=== PATIENT | female | born 1960 | race Caucasian/White ===

== ENCOUNTER → 2019-03-04 16:53 | Outpatient (BNVA) | payer OTHER, SELFPAY | PROVIDERS: Family Provider Nurse Practitioner Family; PCP Nurse Practitioner Family; Visit Provider Counselor Professional | DX: Z00.00 Encounter for general adult medical examination without abnormal findings (principal) | CPT/HCPCS: 80061; 83036 ==

== ENCOUNTER → 2019-03-18 10:51 | Outpatient (BNVA) | payer MEDICAID, SELFPAY | PROVIDERS: Family Provider Nurse Practitioner Family; PCP Nurse Practitioner Family; Visit Provider Family Medicine | DX: K21.9 Gastro-esophageal reflux disease without esophagitis (principal); E78.5 Hyperlipidemia, unspecified; I10 Essential (primary) hypertension; Z83.3 Family history of diabetes mellitus; Z13.1 Encounter for screening for diabetes mellitus; L84 Corns and callosities; B35.1 Tinea unguium | CPT/HCPCS: 80053; 80061; 83036 ==

== ENCOUNTER → 2019-07-27 09:26 | Outpatient (BNVA) | payer MEDICAID, SELFPAY ==
[2019-03-06 15:00] VITALS: BP 139/76; BMI 45.4
== END ==
PROVIDERS: Family Provider Nurse Practitioner Family; PCP Nurse Practitioner Family; Visit Provider Podiatrist Foot & Ankle Surgery
DX: M79.673 Pain in unspecified foot (principal); Z98.890 Other specified postprocedural states
CPT/HCPCS: 73630

== ENCOUNTER → 2019-08-11 10:24 | Outpatient (BNVA) | payer MEDICAID, SELFPAY ==
[2019-03-06 15:00] VITALS: BP 139/76; BMI 45.4
== END ==
PROVIDERS: Family Provider Nurse Practitioner Family; PCP Nurse Practitioner Family; Visit Provider Family Medicine
DX: I11.0 Hypertensive heart disease with heart failure (principal); I50.32 Chronic diastolic (congestive) heart failure; K21.9 Gastro-esophageal reflux disease without esophagitis; F33.1 Major depressive disorder, recurrent, moderate; I48.20 Chronic atrial fibrillation, unspecified; S91.209A Unspecified open wound of unspecified toe(s) with damage to nail, initial encounter; L89.321 Pressure ulcer of left buttock, stage 1; X58.XXXA Exposure to other specified factors, initial encounter
CPT/HCPCS: 80048

== ENCOUNTER 2019-12-18 08:52 | Outpatient (CLI) | payer MEDICAID, SELFPAY ==
[2019-03-06 15:00] VITALS: BP 139/76; BMI 45.4
[2019-12-05 11:35] VITALS: BP 139/76; BMI 45.4
--- NOTE | 2019-12-18 08:59 | MM_ITS ---
WS: [id number] Exam: [place] [id number] Date/Time of Exam: 12/18/2019 9:24 AM Reason For Exam: SCREENING VIEWS: MLO and CC views both breasts. Comparison made with prior exam of 05/17/2016. Findings: There was no sign of mass, architectural distortion or suspicious calcification in either breast. The breasts are fatty MM/[place] [id number] Impression: BI-RADS: 2-Benign FOLLOW-UP: 1 Year Follow-up This mammogram was also analyzed by the Computer Aided Detection System R2 Imag e Auxiliary Engineer.
== END 2019-12-18 08:53 | disposition home or self-care (01) ==
LOC: RADSHAW 08:56
PROVIDERS: PCP Family Medicine; Visit Provider Obstetrics & Gynecology
DX: Z12.31 Encounter for screening mammogram for malignant neoplasm of breast (principal)
CPT/HCPCS: 77067

== ENCOUNTER → 2020-02-22 17:38 | Outpatient (BNVA) | payer MEDICAID, SELFPAY ==
[2019-12-05 11:35] VITALS: BP 139/76; BMI 45.4
== END ==
PROVIDERS: PCP Family Medicine; Visit Provider Family Medicine
DX: K21.9 Gastro-esophageal reflux disease without esophagitis (principal); I10 Essential (primary) hypertension; I48.20 Chronic atrial fibrillation, unspecified; E78.5 Hyperlipidemia, unspecified; R25.2 Cramp and spasm; F32.1 Major depressive disorder, single episode, moderate
CPT/HCPCS: 80053; 80061; 83735; 85025

== ENCOUNTER 2020-03-26 10:38 | Emergency (ER) | payer MEDICAID, SELFPAY ==
[2019-12-05 11:35] VITALS: BP 139/76; BMI 45.4
[2020-03-26 10:39] VITALS: BP 146/82; PULSE 72; RESP 14; TEMP 36.7; O2SAT 97; BMI 63.7
--- NOTE | 2020-03-26 10:50 | XRR_ITS ---
PROCEDURE INFORMATION: Exam: XR Chest, 1 View Exam date and time: 03/26/2020 11:21 AM Age: 59 years old Clinical indication: Chest pain; Type not specified TECHNIQUE: Imaging protocol: XR of the chest Views: 1 view. COMPARISON: CR Chest 1 [place] [id number] 10/30/2018 3:38 PM FINDINGS: Lungs: Unremarkable. No consolidation. Pleural spaces: Unremarkable. No pleural effusion. No pneumothorax. Heart/Mediastinum: Unremarkable. No cardiomegaly. Bones/joints: Unremarkable. XR/XR chest 1V portable [id number] IMPRESSION: No acute findings.
--- NOTE | 2020-03-26 10:51 | ECG_ITS ---
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: : 1960 Requested By: Pawel Beckett Order Number: [id number] Reading MD: BRYANNA RUIZ Measurements Intervals [place] Rate: 70 P: 95 [place]: 198 QRS: 24 QRSD: 90 T: 10 QT: 415 QTc: 448 Interpretive Statements SINUS RHYTHM ST DEVIATION AND MODERATE T-WAVE ABNORMALITY, CONSIDER ANTERIOR ISCHEMIA [-0.1+ mV T WAVE IN V3/V4] Compared to ECG 11/01/2018 08:06:43 Sinus bradycardia no longer present First degree AV block no longer present T-wave abnormality still present Possible ischemia still present Electronically Signed On 03-26-2020 21:34:23 ASSURANCE SENIOR by BRYANNA RUIZ [id number]
[2020-03-26 11:04] VITALS: BP 124/74; PULSE 64; RESP 15; O2SAT 96; O2SAT 97
[2020-03-26 11:05] LABS: Basophils # 0.1 10^3/uL (0.0-0.1); Basophils % 1.4 %; Eosinophils # 0.1 10^3/uL (0.0-0.8); Eosinophils % 1.1 %; Hematocrit 40.4 % (37.0-47.0); Hemoglobin 13.1 g/dL (11.5-15.3); Lymphocytes # 1.7 10^3/uL (0.8-4.8); Lymphocytes % 25.6 %; Mean Corpuscular HGB Conc 32.4 g/dL (30.0-36.0); Mean Corpuscular Volume 89.4 fL (81-99); Mean Platelet Volume 12.2 fL (7.4-10.4); Monocytes # 0.4 10^3/uL (0.2-0.9); Monocytes % 6.6 %; Neutrophils # 4.32 10^3/uL (1.8-7.7); Nucleated Red Blood Cells % 0 %; Platelet Count 199 10^3/cmm (130-400); Red Blood Count 4.52 10^6/uL (4.1-5.3); Red Cell Distribution Width 13.6 % (12.1-15.1); White Blood Count 6.6 10^3/uL (4.0-10.0)
--- NOTE | 2020-03-26 11:07 | W.ED.CHESTPA ---
HPI - Chest Pain General: Chief Complaint: Chest Pain Stated Complaint: CHEST PAIN / SHORT OF BREATH / HEADACHE Time Seen by Provider: 03/26/20 10:43 History of Present Illness: HPI narrative: 59-year-old female with a history of atrial fibrillation with a previous ablation. She woke up this morning with chest pain shortness of breath dizziness and headache. Initially when she woke up her chest felt funny she checked her heart rate on a home pulse ox that it was in the 140s to 180s. It resolved with time EMS arrived to go a little better when she sat up. She did get short of breath with it but not no nausea vomiting or diaphoresis. No previous history of heart disease but does have a history of A. fib with ablation. About 4 to 5 weeks ago she stopped taking metoprolol which she previously had been on for rate control. She still is on Eliquis. MD complaint: chest pain and chest discomfort Pertinent past history: other (Atrial fibrillation with previous ablation) Onset (ago): hour(s) Timing of current episode: episodic Prior episodes: Yes Onset: during rest Pain location: left chest Severity: moderate Quality: aching and heaviness Relieving factors: sitting upright Exacerbating factors: nothing Associated symptoms: Reports dyspnea, palpitations and sense of impending doom; Deny abdominal pain, diaphoresis, fever(s), leg edema, nausea, syncope or vomiting Treatment prior to arrival: none Review of Systems Const: Denies: fever(s) or diaphoresis ENMT: Denies: throat pain, ear or mastoid pain, nasal discharge or nasal congestion Card: Reports: palpitations; Denies: syncope Resp: Reports: dyspnea GI: Denies: abdominal pain, nausea or vomiting : Denies: flank pain, difficulty voiding, dysuria, urinary frequency or urinary urgency Skin/Breast: Denies: rash or pruritus PFSH ED PFSH: Medical History Chronic constipation Chronic diastolic HF (heart failure) Dyslipidemia GERD (gastroesophageal reflux disease) Hepatitis-C HTN (hypertension) Major depressive disorder, recurrent, moderate Obesity, morbid Osteoarthritis Rheumatoid arthritis Sleep apnea Surgical History H/O removal of cyst H/O tubal ligation History of appendectomy Family History Brother Atrial fibrillation Father Atrial fibrillation Cancer prostate Mother Cancer breast cancer Other Hypercholesterolemia Stroke Social History Smoking and tobacco status: former smoker Second hand smoke exposure: No Alcohol intake: never Adopted: No Caregiver/support person: No Lives independently: Yes Household members: spouse Housing: Apartment Marital status: Marital status details: 37 years Number of children: 2 Number of grandchildren: 3 Highest education level completed: GED or Equivalent service: No Current occupational status: disabled Current occupational exposures/hazards: No Pets and animals: Yes Pets & animals: dog(s) History of recent travel: No Leisure activites: games, reading and other Leisure activities details: knit or jeannie Sexually active: Yes Current gender identity: Female Dede/Oriental Orthodox: None Special dede needs: No Agree to transfusion: Yes Financial difficulty paying for basics: Somewhat Hard Female Reproductive History: Para: 2 Spontaneous abortions: No Physical Exam Const: COMMON NORMALS: no acute distress GENERAL APPEARANCE: cooperative and comfortable ORIENTATION/CONSCIOUSNESS: Yes awake, Yes oriented to person, Yes oriented to place and Yes oriented to time HENMT: COMMON NORMALS: normocephalic, atraumatic and hearing grossly normal bilaterally HEAD & SCALP: normocephalic and atraumatic Neck/C-Spine: COMMON NORMALS: no JVD Resp: COMMON NORMALS: normal respiratory effort, No retractions, No use of accessory muscles and clear to auscultation bilaterally AUSCULTATION: clear to auscultation bilaterally Cardio: COMMON NORMALS: no JVD, regular rate, regular rhythm and No murmurs present (Cardio) RATE: regular rate RHYTHM: regular rhythm GI: COMMON NORMALS: Soft to palpation and No hepatosplenomegaly present AUSCULTATION: Yes normoactive bowel sounds PALPATION: Yes Soft to palpation, No Tenderness to palpation present (GI), No Guarding due to palpation present (GI) and Yes No hepatosplenomegaly present Extremity: COMMON NORMALS: normal to inspection, capillary refill normal, no clubbing, cyanosis or edema, no calf tenderness and no pedal edema Neuro: SENSORIUM/ORIENTATION: Yes oriented to person, Yes oriented to place and Yes oriented to time Skin: COMMON NORMALS: no rashes or lesions noted GENERAL SKIN EXAM: no rashes or lesions noted Course Vital Signs: Vital signs: Vital Signs Temperature 98.1 F 03/26/20 10:39 Pulse Rate 61 03/26/20 14:40 Respiratory Rate 20 H 03/26/20 14:40 Blood Pressure 129/60 03/26/20 14:40 Pulse Oximetry 96 03/26/20 14:40 MDM - Chest Pain MDM Narrative: Medical decision making narrative: [place] negative. Patient symptom-free at this time. Few months ago she had an ablation. She is a history of atrial fibrillation. No abnormalities in the EKG now. We will go and discharge home get a Holter monitor continue current medication return if has problems. Lab Data: Labs: Lab Results 03/26/20 03/26/20 03/26/20 Range/Units 10:55 10:55 10:55 WBC 6.6 (4.0-10.0) 10^3/ uL RBC 4.52 (4.1-5.3) 10^6/u L Hgb 13.1 (11.5-15.3) g/dL Hct 40.4 (37.0-47.0) % MCV 89.4 (81-99) fL MCH 29.0 (28.0-34.0) pg MCHC 32.4 (30.0-36.0) g/dL RDW 13.6 (12.1-15.1) % Plt Count 199 (130-400) 10^3/c mm MPV 12.2 H (7.4-10.4) fL Neut % (Auto) 65.0 % Lymph % (Auto) 25.6 % [place] % (Auto) 6.6 % Eos % (Auto) 1.1 % Baso % (Auto) 1.4 % Neut # (Auto) 4.32 (1.8-7.7) 10^3/u L Lymph # (Auto) 1.7 (0.8-4.8) 10^3/u L [place] # (Auto) 0.4 (0.2-0.9) 10^3/u L Eos # (Auto) 0.1 (0.0-0.8) 10^3/u L Baso # (Auto) 0.1 (0.0-0.1) 10^3/u L Nucleated RBC % (a uto) 0 % Nucleated RBCs # 0.0 /100WBC Sodium 142 (136-145) mmol/L Potassium 4.1 (3.5-5.1) mmol/L Chloride 108 H (98-107) mmol/L Carbon Dioxide 22 (22-29) mmol/L Anion Gap 16.1 (5-19) BUN 18 (8-23) mg/dL Creatinine 0.7 (0.5-0.9) mg/dL GFR Calculation 85.1 L (90-130) mL/min Glucose 98 (65-115) mg/dL Calculated Osmolal ity 296 H (285-295) mOsm/k g Calcium 9.4 (8.5-10.5) mg/dL Total Bilirubin 0.5 (0.15-1.2) mg/dL AST 19 (0-32) U/L ALT 17 (0-33) U/L Alkaline Phosphata se 89 (35-105) IU/L Troponin T Baselin e 13 H (0-10) ng/L Troponin T 120 Min [place] (0-10) ng/L Delta Troponin T (0-10) ABS# Total Protein 6.9 (6.6-8.7) g/dL Albumin 4.1 (3.5-5.2) g/dL Globulin 2.8 (1.3-4.6) g/dL 03/26/20 Range/Units 13:00 WBC (4.0-10.0) 10^3/ uL RBC (4.1-5.3) 10^6/u L Hgb (11.5-15.3) g/dL Hct (37.0-47.0) % MCV (81-99) fL MCH (28.0-34.0) pg MCHC (30.0-36.0) g/dL RDW (12.1-15.1) % Plt Count (130-400) 10^3/c mm MPV (7.4-10.4) fL Neut % (Auto) % Lymph % (Auto) % [place] % (Auto) % Eos % (Auto) % Baso % (Auto) % Neut # (Auto) (1.8-7.7) 10^3/u L Lymph # (Auto) (0.8-4.8) 10^3/u L [place] # (Auto) (0.2-0.9) 10^3/u L Eos # (Auto) (0.0-0.8) 10^3/u L Baso # (Auto) (0.0-0.1) 10^3/u L Nucleated RBC % (a uto) % Nucleated RBCs # /100WBC Sodium (136-145) mmol/L Potassium (3.5-5.1) mmol/L Chloride (98-107) mmol/L Carbon Dioxide (22-29) mmol/L Anion Gap (5-19) BUN (8-23) mg/dL Creatinine (0.5-0.9) mg/dL GFR Calculation (90-130) mL/min Glucose (65-115) mg/dL Calculated Osmolal ity (285-295) mOsm/k g Calcium (8.5-10.5) mg/dL Total Bilirubin (0.15-1.2) mg/dL AST (0-32) U/L ALT (0-33) U/L Alkaline Phosphata se (35-105) IU/L Troponin T Baselin e (0-10) ng/L Troponin T 120 Min [place] 15.70 H (0-10) ng/L Delta Troponin T 2.70 (0-10) ABS# Total Protein (6.6-8.7) g/dL Albumin (3.5-5.2) g/dL Globulin (1.3-4.6) g/dL Discharge Plan Discharge Patient Disposition: Home Clinical Impression: Palpitations Condition: Stable Prescriptions: No Action docusate sodium 100 mg capsule 100 mg PO BID@0800,2129 RF: 0 meclizine 25 mg tablet 25 mg PO DAILY PRN (Reason: unknown) RF: 0 nitroglycerin 0.4 mg tablet, sublingual 0.4 mg SUBLINGUAL Q5M PRN (Reason: chest pains) RF: 0 Probiotic Acidophilus 1.5 mg (250 million cell) capsule 100 mmu cells PO DAILY@0800 RF: 0 calcium citrate-vitamin D3 315-200 mg-unit tablet 1 tab PO TID@0800,1200,0 RF: 0 furosemide 20 mg tablet 20 mg PO DAILY@0800 RF: 0 potassium chloride 20 mEq tablet,ER particles/crystals 20 meq PO DAILY@0800 RF: 0 atorvastatin 40 mg tablet 40 mg PO DAILY@2130 RF: 0 famotidine 40 mg tablet 40 mg PO DAILY@0800 RF: 0 Zoloft 100 mg tablet 150 mg PO DAILY@0800 RF: 0 Allergy Relief (loratadine) 10 mg tablet 10 mg PO DAILY@0800 RF: 0 Eliquis 5 mg tablet 5 mg PO BID@0800,2130 RF: 0 Discharge Orders: Discharge ED (Routine); Ordered 03/26/20 Ordered By: Pawel Frey Referrals: Xenia Mai MD [Primary Care Provider] - Discharge Diet: Usual diet Discharge Activity: Limit activity as instructed Activity Restrictions/Additional Instructions: Avoid any stressful or exertional activities. Follow-up with cardiology. Case management will call to set you up for a Holter monitor. Coding Level of Care Code ED Cold Roll Packer Sheet Iron for Julio Fwd Exam Comprehensive
[2020-03-26 11:30] LABS: Alanine Aminotransferase 17 U/L (0-33); Albumin Level 4.1 g/dL (3.5-5.2); Alkaline Phosphatase 89 IU/L (35-105); Anion Gap 16.1 (5-19); Aspartate Amino Transferase 19 U/L (0-32); Blood Urea Nitrogen 18 mg/dL (8-23); Calcium 9.4 mg/dL (8.5-10.5); Carbon Dioxide 22 mmol/L (22-29); Chloride 108 mmol/L (98-107); Globulin 2.8 g/dL (1.3-4.6); Glomerular Filtration Rate 85.1 mL/min (90-130); Glucose 98 mg/dL (65-115); Osmolality Calculated 296 mOsm/kg (285-295); Potassium 4.1 mmol/L (3.5-5.1); Sodium 142 mmol/L (136-145); Total Bilirubin 0.5 mg/dL (0.15-1.2); Total Protein 6.9 g/dL (6.6-8.7)
[2020-03-26 11:32] LABS: Troponin(5th) Baseline 13 ng/L (0-10)
[2020-03-26 12:04] VITALS: BP 124/67; PULSE 63; RESP 18; O2SAT 97
--- NOTE | 2020-03-26 12:51 | ECG_ITS ---
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1960 Requested By: Pawel Beckett Order Number: [id number] Reading MD: BRYANNA RUIZ Measurements Intervals [place] Rate: 64 P: 80 MS: 169 QRS: 8 QRSD: 97 T: -2 QT: 430 QTc: 446 Interpretive Statements SINUS RHYTHM WITH OCCASIONAL VENTRICULAR PREMATURE COMPLEXES LOW QRS VOLTAGE IN PRECORDIAL LEADS [QRS DEFLECTION < 1.0 mV IN CHEST LEADS] ST DEVIATION AND MODERATE T-WAVE ABNORMALITY, CONSIDER ANTERIOR ISCHEMIA [-0.1+ mV T WAVE IN V3/V4] INTERPRETATION BASED ON A DEFAULT AGE OF 40 YEARS Compared to ECG 03/26/2020 10:50:12 Ventricular premature complex(es) now present Low QRS voltage now present T-wave abnormality still present Possible ischemia still present Electronically Signed On 03-26-2020 21:34:38 TYPESETTERS PRINTER by BRYANNA RUIZ [id number]
[2020-03-26 13:00] VITALS: BP 124/74; PULSE 60; RESP 18; O2SAT 97
[2020-03-26 14:00] VITALS: BP 129/60; PULSE 61; RESP 20; O2SAT 96
[2020-03-26 14:40] VITALS: BP 129/60; PULSE 61; RESP 20; O2SAT 96
--- NOTE | 2020-03-26 16:51 | ECG_ITS ---
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: : 1960 Requested By: Pawel Beckett Order Number: [id number] Reading MD: BRYANNA RUIZ Measurements Intervals [place] Rate: 70 P: 95 [place]: 198 QRS: 24 QRSD: 90 T: 10 QT: 415 QTc: 448 Interpretive Statements SINUS RHYTHM ST DEVIATION AND MODERATE T-WAVE ABNORMALITY, CONSIDER ANTERIOR ISCHEMIA [-0.1+ mV T WAVE IN V3/V4] Compared to ECG 11/01/2018 08:06:43 Sinus bradycardia no longer present First degree AV block no longer present T-wave abnormality still present Possible ischemia still present Electronically Signed On 03-26-2020 21:34:47 MARINE FIREMAN by BRYANNA RUIZ [id number]
--- NOTE | 2020-03-29 07:47 | DCPLANNER ---
Addendum entered by Nataliia Silverman 04/12/20 14:34: insurance office manager called [facility] to confirm that a follow up appointment had been scheduled for patient for a holter monitor. insurance office manager spoke with Lynette, was told that clinic had received the order for the halter monitor and that there is a note in the chart stating that the order is placed on hold until patient sees Dr. Hernandez on April 28 at the [facility]. At that appointment it will be determined if patient needs halter monitor. Original Note: insurance office manager had message to schedule an out patient 24 hour halter monitor for patient. insurance office manager faxed order and patients information to [facility], will call for appointment information.
== END 2020-03-26 14:51 | disposition home or self-care (01) ==
PROVIDERS: Emergency Provider Family Medicine; PCP Family Medicine
DX: R00.2 Palpitations (principal); Z79.01 Long term (current) use of anticoagulants; I11.0 Hypertensive heart disease with heart failure; I50.32 Chronic diastolic (congestive) heart failure; E78.5 Hyperlipidemia, unspecified; Z86.19 Personal history of other infectious and parasitic diseases; Z87.891 Personal history of nicotine dependence
CPT/HCPCS: 12345; 36415; 71045; 80053; 84484; 85025; 93005; 99283

== ENCOUNTER → 2020-04-13 11:43 | Outpatient (BNVA) | payer OTHER, SELFPAY ==
[2019-12-05 11:35] VITALS: BP 139/76; BMI 45.4
== END ==
PROVIDERS: PCP Family Medicine; Visit Provider Psychiatry & Neurology Neurology
DX: F41.1 Generalized anxiety disorder (principal)
CPT/HCPCS: 80061; 83036

== ENCOUNTER 2020-08-01 13:46 | Emergency (ER) | payer MEDICAID, SELFPAY ==
[2020-04-14 11:03] VITALS: BP 133/72; BMI 46.9
[2020-08-01] VITALS (8 sets, daily range): BP systolic 91–145; BP diastolic 62–78; PULSE 63–77; RESP 14–19; O2SAT 94–100; BMI 48.1
--- NOTE | 2020-08-01 13:51 | XR_ITS ---
WS: [id number] Exam: XR chest 1V portable [id number] Date/Time of Exam: 08/01/2020 1:51 PM Reason For Exam: CP Comparison 03/26/2020. The lungs are clear and fully expanded. Mild cardiac enlargement. No pleural effusions. The mediastin um and osseous thorax are unremarkable. XR/XR chest 1V portable [id number] IMPRESSION: 1. No acute cardiopulmonary finding. Mild cardiac enlargement.
--- NOTE | 2020-08-01 13:51 | ECG_ITS ---
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 Measurements Intervals [place] Rate: 71 P: 67 [place]: 160 QRS: -4 QRSD: 94 T: -36 QT: 413 QTc: 451 Interpretive Statements SINUS RHYTHM LOW QRS VOLTAGE IN PRECORDIAL LEADS [QRS DEFLECTION < 1.0 mV IN CHEST LEADS] POSSIBLE ANTERIOR MYOCARDIAL INFARCTION [30 ms Q WAVE IN V3/V4, OR R < 0.2 mV IN V4], OF INDETERMINATE AGE MODERATE T-WAVE ABNORMALITY, CONSIDER LATERAL ISCHEMIA [-0.1+ mV T WAVE IN I/aVL/V5/V6] Compared to ECG 03/26/2020 12:55:10 Myocardial infarct finding now present Ventricular premature complex(es) no longer present T-wave abnormality still present Possible ischemia still present Electronically Signed On 08-01-2020 22:48:12 CDT by Erum Hernandez M.D. [id number]
--- NOTE | 2020-08-01 14:25 | W.ED.CHESTPA ---
HPI - Chest Pain General: Chief Complaint: Chest Pain Stated Complaint: CHEST PAIN Time Seen by Provider: 08/01/20 14:05 History of Present Illness: HPI narrative: Is a 60-year-old female with paroxysmal atrial fibrillation with ablation previously. She comes to the ER complaining of palpitations at home. She has been told by Dr. Hernandez to take a flecainide and metoprolol. She did so and then took a second flecainide. She went to the bathroom and after standing up she went out and sat back down. She says she did not lose consciousness, she just felt weak. She was helped to a chair and EMS was called. EMS noted her heart rate to be anywhere from the 120s up to 220. They mostly noted A. fib however there was an episode where she was up to 220. I saw their strip that they printed a 12-lead with rate in the 150s which appears to be A. fib RVR. He took his eyes off the telemetry screen and attempted an IV when he looked at the screen again she was in sinus rhythm with a normal rate. Also her symptoms improved greatly. On arrival she is in sinus rhythm with a rate of 70. She says the fullness in her neck that she gets with the palpitation episodes has improved moderately but is still mildly there. She had chest pain and palpitations at home but now has none. h/o diastolic CHF as well. She has had 2 episodes before this. The first time she came to the ER and the second time she was able to take the metoprolol and flecainide with resolution of her symptoms. This is the third time in her family called EMS. complaint: chest pain Onset (ago): hour(s) (1) Timing of current episode: episodic Prior episodes: Yes Pain radiation: neck Severity: moderate Quality: other (palpitations) Relieving factors: nothing Exacerbating factors: nothing Associated symptoms: Reports palpitations; Deny abdominal pain or dyspnea Review of Systems General: Reports: 10 or more systems reviewed and unremarkable except in HPI and below Const: Denies: fatigue Eyes: Denies: change in vision, blurry vision or eye redness ENMT: Denies: throat pain, swelling of lips/tongue, ear or mastoid pain or nasal congestion Card: Reports: palpitations Resp: Denies: dyspnea, productive cough or non-productive cough GI: Denies: abdominal pain, diarrhea or GI cramping : Denies: flank pain, difficulty voiding, urinary frequency or urinary urgency Musc: Denies: neck pain, back pain, extremity pain, joint pain, joint redness, limited range of motion or muscle weakness Skin/Breast: Denies: rash, pruritus, erythema, skin pain or skin tenderness Neuro: Denies: headache(s), numbness in extremities, weakness in extremities, sensory changes, difficulty walking, dizziness, confusion or Slurred speech present Psych: Denies: anxiety or depression Endo: Denies: polyuria All/Imm: Denies: urticaria, throat swelling or tongue swelling PFSH ED PFSH: Medical History Chronic constipation Chronic diastolic HF (heart failure) Dyslipidemia GERD (gastroesophageal reflux disease) Hepatitis-C HTN (hypertension) Major depressive disorder, recurrent, moderate Mixed incontinence urge and stress Obesity, morbid Osteoarthritis Rheumatoid arthritis Sleep apnea Surgical History H/O removal of cyst H/O tubal ligation History of appendectomy Family History Brother Atrial fibrillation Father Atrial fibrillation Cancer prostate Mother Cancer breast cancer Other Hypercholesterolemia Stroke Social History Smoking and tobacco status: former smoker Second hand smoke exposure: No Alcohol intake: never Adopted: No Caregiver/support person: No Lives independently: Yes Household members: spouse Housing: Apartment Marital status: Marital status details: 37 years Number of children: 2 Number of grandchildren: 3 Highest education level completed: GED or Equivalent service: No Current occupational status: disabled Current occupational exposures/hazards: No Pets and animals: Yes Pets & animals: dog(s) History of recent travel: No Leisure activites: games, reading and other Leisure activities details: knit or jeannie Sexually active: Yes Current gender identity: Female Dede/Hindu: None Special dede needs: No Agree to transfusion: Yes Financial difficulty paying for basics: Somewhat Hard Female Reproductive History: Para: 2 Spontaneous abortions: No Physical Exam Const: COMMON NORMALS: no acute distress, average body habitus, patient oriented x3, no limitations, healthy appearing, alert and well nourished GENERAL APPEARANCE: cooperative, comfortable, well kempt and well developed ORIENTATION/CONSCIOUSNESS: Yes awake, Yes oriented to person, Yes oriented to place and Yes oriented to time HENMT: COMMON NORMALS: normocephalic, external ears normal and Normal external nose present HEAD & SCALP: normal to inspection and normocephalic NOSE: Normal external nose present EXTERNAL EAR: Yes external ears normal MOUTH: Normal oral and palatal mucosa present THROAT: posterior oropharynx normal Eye: COMMON NORMALS: Equal, round and reactive pupils present and EOMs intact bilaterally GENERAL EYE: appearance normal, both eyes and all related structures PUPIL: Yes Equal, round and reactive pupils present Neck/C-Spine: COMMON NORMALS: full ROM, no lymphadenopathy, no meningeal signs and no JVD GENERAL: Yes normal visual inspection Lymph: LYMPHATIC: no lymphadenopathy noted Chest: COMMONS NORMALS: normal inspection of the chest and normal palpation of entire chest wall Resp: COMMON NORMALS: normal respiratory effort, No retractions, No use of accessory muscles, clear to auscultation bilaterally and percussion normal EFFORT & INSPECTION: Yes able to speak in complete sentences AUSCULTATION: clear to auscultation bilaterally PERCUSSION: percussion normal Cardio: COMMON NORMALS: no JVD, regular rate, regular rhythm, S1 normal heart sound present, S2 normal heart sound present and Peripheral pulses 2+ throughout RATE: regular rate RHYTHM: regular rhythm HEART SOUNDS: S1 normal heart sound present and S2 normal heart sound present PERIPHERAL PULSES: Peripheral pulses 2+ throughout GI: COMMON NORMALS: Normal to inspection, nondistended, normoactive bowel sounds present, Soft to palpation, non-tender and no masses INSPECTION: Yes normal to inspection PALPATION: Yes Soft to palpation : COMMON NORMALS: Yes no CVA tenderness BLADDER/KIDNEY EXAM: Yes no CVA tenderness Back/Pelvis: COMMON NORMALS: no CVA tenderness, thoracic and lumbar spine normal to inspection, no thoracic nor lumbar tenderness and thoraco-lumbar ROM normal Extremity: COMMON NORMALS: normal to inspection, full ROM, capillary refill normal, no joint enlargement and no pedal edema GENERAL: Yes normal exam except as noted Neuro: COMMON NORMALS: patient oriented x3, CN's II-XII intact bilaterally, moves all extremities, no focal motor deficits, no sensory deficits noted and gait normal SENSORIUM/ORIENTATION: Yes alert, Yes oriented to person, Yes oriented to place and Yes oriented to time MENINGEAL SIGNS: Yes no meningeal signs Psych: COMMON NORMALS: mental status grossly normal, Normal thought process present, cooperative, normal affect and speech normal APPEARANCE: Yes well kempt ATTITUDE: Yes calm SPEECH: Yes normal speech THOUGHT PROCESS: Normal thought process present Skin: COMMON NORMALS: no rashes or lesions noted GENERAL SKIN EXAM: no rashes or lesions noted Course Vital Signs: Vital signs: Vital Signs Pulse Rate 63 08/01/20 18:27 Respiratory Rate 16 08/01/20 18:27 Blood Pressure 130/74 08/01/20 18:27 Pulse Oximetry 97 08/01/20 18:27 MDM - Chest Pain MDM Narrative: Medical decision making narrative: The patient came to the ER after a near syncopal event at home with palpitations. She took her sotalol and metoprolol as she is supposed to do. She has had tacky arrhythmias A. fib RVR before. EMS noted A. fib RVR in the 160s I witnessed a 12-lead EKG showing exactly that. They also said it went up to the 220s for a short bit. They placed an IV and she spontaneously converted. Possibility that the pain converted her or her medications kicked in at that moment also reasonable. In the ER she has been in sinus rhythm and asymptomatic. Labs EKGs and troponins are all normal. EKG shows sinus rhythm in the 60s. Discussed with Dr. Lewis who feels comfortable sending her home. Follow-up with Dr. Hernandez this week. ER with worsening symptoms at any time. Lab Data: Labs: Lab Results 08/01/20 08/01/20 08/01/20 Range/Units 14:55 15:30 15:30 WBC 7.6 (4.0-10.0) 10^3/ uL RBC 4.52 (4.1-5.3) 10^6/u L Hgb 12.5 (11.5-15.3) g/dL Hct 40.9 (37.0-47.0) % MCV 90.5 (81-99) fL MCH 27.7 L (28.0-34.0) pg MCHC 30.6 (30.0-36.0) g/dL RDW 14.3 (12.1-15.1) % Plt Count 197 (130-400) 10^3/c mm MPV 10.5 H (7.4-10.4) fL Neut % (Auto) 68.1 % Lymph % (Auto) 22.1 % [place] % (Auto) 7.1 % Eos % (Auto) 1.1 % Baso % (Auto) 1.2 % Neut # (Auto) 5.18 (1.8-7.7) 10^3/u L Lymph # (Auto) 1.7 (0.8-4.8) 10^3/u L [place] # (Auto) 0.5 (0.2-0.9) 10^3/u L Eos # (Auto) 0.1 (0.0-0.8) 10^3/u L Baso # (Auto) 0.1 (0.0-0.1) 10^3/u L Nucleated RBC % (a uto) 0 % Nucleated RBCs # 0.0 /100WBC Sodium 141 (136-145) mmol/L Potassium 3.7 (3.5-5.1) mmol/L Chloride 106 (98-107) mmol/L Carbon Dioxide 26 (22-29) mmol/L Anion Gap 12.7 (5-19) BUN 13 (8-23) mg/dL Creatinine 0.9 (0.5-0.9) mg/dL GFR Calculation 63.4 L (90-130) mL/min Glucose 117 H (65-115) mg/dL Calculated Osmolal ity 293 (285-295) mOsm/k g Calcium 9.4 (8.5-10.5) mg/dL Total Bilirubin 0.4 (0.15-1.2) mg/dL AST 19 (0-32) U/L ALT 17 (0-33) U/L Alkaline Phosphata se 81 (35-105) IU/L Troponin T Baselin e (0-10) ng/L Troponin T 120 Min [place] (0-10) ng/L Delta Troponin T (0-10) ABS# NT-Pro-B Natriuret Pep 426 H (0-125) pg/mL Total Protein 7.2 (6.6-8.7) g/dL Albumin 4.2 (3.5-5.2) g/dL Globulin 3.0 (1.3-4.6) g/dL Lipase 38 (13-60) U/L Urine Color Straw (Yellow) Urine Appearance Clear (CLEAR) Urine pH 8 H (5-7) Ur Specific Gravit y 1.010 (1.005-1.030) Urine Protein Neg (Negative) Urine Glucose (UA) Norm (Normal) Urine Ketones Negative (Negative) Urine Blood Neg (Negative) Urine Nitrate Negative (Negative) Urine Bilirubin Neg (Negative) Prot Sulfosalicyli c Acd Negative (Negative) Urine Urobilinogen Norm (Negative) mg/dL Ur Leukocyte Sandy ase Negative (Negative) 08/01/20 08/01/20 Range/Units 15:30 17:48 WBC (4.0-10.0) 10^3/ uL RBC (4.1-5.3) 10^6/u L Hgb (11.5-15.3) g/dL Hct (37.0-47.0) % MCV (81-99) fL MCH (28.0-34.0) pg MCHC (30.0-36.0) g/dL RDW (12.1-15.1) % Plt Count (130-400) 10^3/c mm MPV (7.4-10.4) fL Neut % (Auto) % Lymph % (Auto) % [place] % (Auto) % Eos % (Auto) % Baso % (Auto) % Neut # (Auto) (1.8-7.7) 10^3/u L Lymph # (Auto) (0.8-4.8) 10^3/u L [place] # (Auto) (0.2-0.9) 10^3/u L Eos # (Auto) (0.0-0.8) 10^3/u L Baso # (Auto) (0.0-0.1) 10^3/u L Nucleated RBC % (a uto) % Nucleated RBCs # /100WBC Sodium (136-145) mmol/L Potassium (3.5-5.1) mmol/L Chloride (98-107) mmol/L Carbon Dioxide (22-29) mmol/L Anion Gap (5-19) BUN (8-23) mg/dL Creatinine (0.5-0.9) mg/dL GFR Calculation (90-130) mL/min Glucose (65-115) mg/dL Calculated Osmolal ity (285-295) mOsm/k g Calcium (8.5-10.5) mg/dL Total Bilirubin (0.15-1.2) mg/dL AST (0-32) U/L ALT (0-33) U/L Alkaline Phosphata se (35-105) IU/L Troponin T Baselin e 14 H (0-10) ng/L Troponin T 120 Min [place] 17.47 H (0-10) ng/L Delta Troponin T 3.47 (0-10) ABS# NT-Pro-B Natriuret Pep (0-125) pg/mL Total Protein (6.6-8.7) g/dL Albumin (3.5-5.2) g/dL Globulin (1.3-4.6) g/dL Lipase (13-60) U/L Urine Color (Yellow) Urine Appearance (CLEAR) Urine pH (5-7) Ur Specific Gravit y (1.005-1.030) Urine Protein (Negative) Urine Glucose (UA) (Normal) Urine Ketones (Negative) Urine Blood (Negative) Urine Nitrate (Negative) Urine Bilirubin (Negative) Prot Sulfosalicyli c Acd (Negative) Urine Urobilinogen (Negative) mg/dL Ur Leukocyte Sandy ase (Negative) Discharge Plan Discharge Patient Disposition: Home Clinical Impression: Atrial fibrillation Condition: Stable Prescriptions: No Action docusate sodium 100 mg capsule 100 mg PO BID PRN (Reason: Constipation) RF: 0 meclizine 25 mg tablet 25 mg PO DAILY PRN (Reason: Dizziness) RF: 0 nitroglycerin 0.4 mg tablet, sublingual 0.4 mg SUBLINGUAL Q5M PRN (Reason: Chest Pain) RF: 0 Probiotic Acidophilus 1.5 mg (250 million cell) capsule 100 mmu cells PO DAILY@0800 RF: 0 calcium citrate-vitamin D3 315-200 mg-unit tablet 1 tab PO DAILY@0800 RF: 0 furosemide 20 mg tablet 20 mg PO DAILY@0800 RF: 0 potassium chloride 20 mEq tablet,ER particles/crystals 20 meq PO DAILY@0800 RF: 0 flecainide 50 mg tablet 50 mg PO .COMPLEX Qty: 30 RF: 3 Zoloft 100 mg tablet 200 mg PO DAILY@0800 Qty: 60 RF: 2 Allergy Relief (loratadine) 10 mg tablet 10 mg PO DAILY@0800 Qty: 30 RF: 0 atorvastatin 40 mg tablet 40 mg PO DAILY@2100 RF: 0 famotidine 40 mg tablet 40 mg PO DAILY@0800 RF: 0 metoprolol succinate 25 mg tablet extended release 24 hr 12.5 mg PO DAILY@0800 RF: 0 Eliquis 5 mg tablet 5 mg PO BID@ RF: 0 Discharge Orders: Discharge ED (Routine); Ordered 08/01/20 Ordered By: Dat Saenz Referrals: Xenia Mai MD [Primary Care Provider] - Discharge Diet: Advance as tolerated Discharge Activity: Resume usual activity Patient Instructions: Atrial Fibrillation (ED), Opioid Safety Activity Restrictions/Additional Instructions: You came in complaining of palpitations and your EKG showed atrial fibrillation with rapid ventricular leg. This is likely what made you lightheaded however you took your medications at home and your heart spontaneously converted itself to a sinus rhythm. You have been in a normal rhythm here in the ER for several hours and have normal labs. I discussed with Dr. Lewis who feels comfortable sending you home and having you follow-up with Dr. Hernandez this week. Return to the ER at anytime with worsening symptoms, palpitations, shortness of breath, chest pain or any other worrisome symptoms Coding Level of Care Code ED Fabric Normalizer for Julio Fwalbina Exam Comprehensive
[2020-08-01 15:08] LABS: Add Urine Microscopic? NO; Charge for UA Resulting for Rev
[2020-08-01 15:13] LABS: Bilirubin Urine Neg (Negative); Blood Urine Neg (Negative); Glucose Urine UA Norm (Normal); Ketones Urine Negative (Negative); Leukocyte Esterase Urine Negative (Negative); Nitrate Urine Negative (Negative); Protein Urine Neg (Negative); Sulfosalicylic Acid Urine Negative (Negative); Urine Appearance Clear (CLEAR); Urine Color Straw (Yellow); Urobilinogen Urine Norm (Negative); pH Urine 8 (5-7)
[2020-08-01 15:38] LABS: Basophils # 0.1 10^3/uL (0.0-0.1); Basophils % 1.2 %; Eosinophils # 0.1 10^3/uL (0.0-0.8); Eosinophils % 1.1 %; Hematocrit 40.9 % (37.0-47.0); Hemoglobin 12.5 g/dL (11.5-15.3); Lymphocytes # 1.7 10^3/uL (0.8-4.8); Lymphocytes % 22.1 %; Mean Corpuscular HGB Conc 30.6 g/dL (30.0-36.0); Mean Corpuscular Hemoglobin 27.7 pg (28.0-34.0); Mean Corpuscular Volume 90.5 fL (81-99); Mean Platelet Volume 10.5 fL (7.4-10.4); Monocytes # 0.5 10^3/uL (0.2-0.9); Monocytes % 7.1 %; Neutrophils # 5.18 10^3/uL (1.8-7.7); Neutrophils % 68.1 %; Nucleated Red Blood Cells % 0 %; Platelet Count 197 10^3/cmm (130-400); Red Blood Count 4.52 10^6/uL (4.1-5.3); Red Cell Distribution Width 14.3 % (12.1-15.1); White Blood Count 7.6 10^3/uL (4.0-10.0)
--- NOTE | 2020-08-01 15:51 | ECG_ITS ---
[facility] Test Date: 2020-08-01 Pat Name: Ciarra Rosales Department: Room: Gender: Female Sound Mixer: : [id number] Requested By: Gustavo Newman Order Number: [id number] Luis Antonio MD: Erum Hernandez M.D. Measurements Intervals [place] Rate: 69 P: 56 MI: 165 QRS: -8 QRSD: 96 T: -7 QT: 422 QTc: 453 Interpretive Statements SINUS RHYTHM LOW QRS VOLTAGE IN PRECORDIAL LEADS [QRS DEFLECTION < 1.0 mV IN CHEST LEADS] POSSIBLE ANTERIOR MYOCARDIAL INFARCTION [30 ms Q WAVE IN V3/V4, OR R < 0.2 mV IN V4], OF INDETERMINATE AGE Compared to ECG 08/01/2020 14:23:00 T-wave abnormality no longer present Possible ischemia no longer present Myocardial infarct finding still present Electronically Signed On 08-01-2020 22:55:36 CDT by Erum Hernandez M.D. [id number]
[2020-08-01 16:19] LABS: Alanine Aminotransferase 17 U/L (0-33); Albumin Level 4.2 g/dL (3.5-5.2); Alkaline Phosphatase 81 IU/L (35-105); Anion Gap 12.7 (5-19); Aspartate Amino Transferase 19 U/L (0-32); Blood Urea Nitrogen 13 mg/dL (8-23); Calcium 9.4 mg/dL (8.5-10.5); Carbon Dioxide 26 mmol/L (22-29); Chloride 106 mmol/L (98-107); Glomerular Filtration Rate 63.4 mL/min (90-130); Glucose 117 mg/dL (65-115); Lipase 38 U/L (13-60); NT Pro B Type Natriuretic Pept 426 pg/mL (0-125); Osmolality Calculated 293 mOsm/kg (285-295); Potassium 3.7 mmol/L (3.5-5.1); Sodium 141 mmol/L (136-145); Total Bilirubin 0.4 mg/dL (0.15-1.2); Total Protein 7.2 g/dL (6.6-8.7)
[2020-08-01 16:33] LABS: Troponin(5th) Baseline 14 ng/L (0-10)
[2020-08-01 18:26] LABS: Troponin 5 2HR 17.47 ng/L (0-10); Troponin 5 2HR Delta 3.47 ABS# (0-10)
== END 2020-08-01 19:25 | disposition home or self-care (01) ==
PROVIDERS: Physician Assistant; Emergency Provider Family Medicine; PCP Family Medicine
DX: I48.91 Unspecified atrial fibrillation (principal); Z79.01 Long term (current) use of anticoagulants; I11.0 Hypertensive heart disease with heart failure; I50.32 Chronic diastolic (congestive) heart failure; E78.5 Hyperlipidemia, unspecified; Z86.19 Personal history of other infectious and parasitic diseases; Z87.891 Personal history of nicotine dependence
CPT/HCPCS: 36415; 71045; 80053; 81003; 83690; 83880; 84484; 85025; 93005; 99284

== ENCOUNTER → 2020-11-10 09:32 | Outpatient (BNVA) | payer MEDICAID, SELFPAY ==
[2020-08-29 13:07] VITALS: BP 133/72; BMI 46.9
== END ==
PROVIDERS: PCP Family Medicine; Visit Provider Internal Medicine Cardiovascular Disease
DX: I48.0 Paroxysmal atrial fibrillation (principal); Z79.899 Other long term (current) drug therapy
CPT/HCPCS: 80053; 85025

== ENCOUNTER → 2020-11-18 09:06 | Outpatient (BNVA) | payer MEDICAID, SELFPAY ==
[2020-08-29 13:07] VITALS: BP 133/72; BMI 46.9
== END ==
PROVIDERS: PCP Family Medicine; Referring Provider Surgery; Visit Provider Surgery
DX: Z20.822 Contact with and (suspected) exposure to COVID-19 (principal)
CPT/HCPCS: 87635

== ENCOUNTER 2020-11-23 08:13 | Day surgery (SDC) | payer MEDICAID, SELFPAY ==
[2020-04-14 11:03] VITALS: BP 133/72; BMI 46.9
[2020-08-29 13:07] VITALS: BP 133/72; BMI 46.9
[2020-11-18 12:54] VITALS: BMI 47.4
--- NOTE | 2020-11-23 08:45 | ANES.PREANE2 ---
Pre-Anesthetic Assessment Pre-Anesthetic Assessment: Height/Weight: Height 1.68 m Weight 133.356 kg Preop Diagnosis: History of colon polyps Proposed Procedure: Operation Date: 11/23/20 09:45 Proposed Procedures p Colonoscopy 34164 R15.9(Not Applicable) - Asael Uribe MD Was Beta Cristin taken within 24 hours: Yes Was Clonidine taken within 24 hours: N/A Social: Social History: No alcohol and No tobacco Exam: Pre-Anes Outpt Exam: alert, oriented x 3, clear to auscultation bilaterally and regular rate & rhythm Airway: Submandibular: WNL Cervical ROM: WNL MP: 2 Dentition: False Pulmonary: Pulmonary: Sleep apnea CV/HEM: CV/HEM: Afib, CAD and HTN Comments: anticoagulation GI: GI: GERD Metabolic: Metabolic: Morbid obesity Neuropsych: Neuropsych: Depression Anesthetic Plan: ASA status: 3 Anesthesia: MAC Risk of > 500 ml blood loss (7ml/kg in children): No PFSH Anesthesia PFSH: Medical History (Updated 10/12/20 @ 10:25 by Paola Griffin) Chronic constipation Chronic diastolic HF (heart failure) Dyslipidemia GERD (gastroesophageal reflux disease) Hepatitis-C History of colon polyps HTN (hypertension) Major depressive disorder, recurrent, moderate Mixed incontinence urge and stress Obesity, morbid Osteoarthritis Psychiatric care Rheumatoid arthritis Sleep apnea Surgical History H/O removal of cyst H/O tubal ligation History of appendectomy History of colonoscopy with polypectomy 2013 History of radiofrequency ablation procedure for cardiac arrhythmia Family History Brother Atrial fibrillation Father Atrial fibrillation Cancer prostate Mother Cancer breast cancer Other Hypercholesterolemia Stroke Social History Smoking and tobacco status: never smoked Second hand smoke exposure: No Alcohol intake: never Adopted: No Caregiver/support person: No Lives independently: Yes Household members: spouse Housing: Apartment Marital status: Marital status details: 37 years Number of children: 2 Number of grandchildren: 3 Highest education level completed: GED or Equivalent service: No Current occupational status: disabled Current occupational exposures/hazards: No Pets and animals: Yes Pets & animals: dog(s) History of recent travel: No Leisure activites: games, reading and other Leisure activities details: knit or jeannie Sexually active: Yes Current gender identity: Female Dede/Buddhism: None Special dede needs: No Agree to transfusion: Yes Financial difficulty paying for basics: Somewhat Hard Female Reproductive History: Para: 2 Spontaneous abortions: No Data Anesthesia Cardiac Studies: No Data to Display
[2020-11-23 09:14] VITALS: BP 154/85; PULSE 69; RESP 18; TEMP 36.1; O2SAT 96
[2020-11-23] MEDS: sodium chloride 0.9% 1,000 ML 30 ML IV (09:19)
--- NOTE | 2020-11-23 09:51 | P.HP_ITS ---
Same Day Surgery H&P Indication for Procedure/HPI DATE OF PROCEDURE: November 23, 2020 CHIEF COMPLAINT/INDICATIONFOR SURGICAL PROCEDURE: Polyps of the colon PREOP DIAGNOSIS: History of colon polyps PLANNED PROCEDRUE: Operation Date: 11/23/20 09:45 Proposed Procedures p Colonoscopy 13286 R15.9(Not Applicable) - Asael Uribe MD A pleasant 61 years old female patient morbidly obese with a current BMI of 48 and weighs 298 pounds patient has lost about 62 pounds intentionally. For the past couple of months or so has been experiencing what she describes it as incontinence and she is not able to control her bowels. This has been going on for the past couple of years yet she does report to me change in bowel habits between diarrhea and constipation and sometimes intermittently bleeding per rectum. Also reports to me that she had a colonoscopy about 7 years ago and polyps were found and removed. No clear history of colon cancer. Patient is referred to me for further evaluation for potential colonoscopy and address her fecal incontinence. Patient reports that she is not able sometimes to control her flatus or feces when she did not undergo any other objective investigations with that regard. Interim history 11/23/2020. Patient comes today for diagnostic colonoscopy. ROS All systems have been reviewed negative except as per the above or per problem list Medications/Allergies* Home Medications Medication Instructions Recorded Confirmed Type Lactobacillus acidophilus 1.5 mg 100 mmu cells PO DAILY@0803/11/19 11/18/20 History (250 million cell) capsule calcium citrate 315 mg-vitamin D3 1 tab PO DAILY@0803/11/19 11/18/20 History 5 mcg (200 unit) tablet docusate sodium 100 mg capsule 100 mg PO BID PRN 03/11/19 11/18/20 History meclizine 25 mg tablet 25 mg PO DAILY PRN 03/11/19 11/18/20 History nitroglycerin 0.4 mg sublingual 0.4 mg SUBLINGUAL Q5M PRN 03/11/19 11/18/20 History tablet famotidine 40 mg PO DAILY@0800 03/26/20 11/18/20 History apixaban [Eliquis] 5 mg PO BID@08,2100 08/01/20 11/23/20 History metoprolol succinate 12.5 mg PO DAILY@0808/01/20 11/18/20 History flecainide 50 mg tablet 50 mg PO Q12H tab 08/09/20 11/18/20 History magnesium 30 mg PO DAILY 11/18/20 11/18/20 History Allergies/Adverse Reactions Allergy/AdvReac Type Severity Reaction Status Date / Time codeine AdvReac Mild headache, Verified 11/23/20 10:15 vomiting NSAIDS (Non-Steroidal AdvReac UNKNOWN Verified 11/23/20 10:15 Anti-Inflamma Current Medications: Generic Name Dose Route Start Last Admin Trade Name Alessandra PRN Reason Stop Dose Admin Sodium Chloride 1,000 mls @ 30 mls/hr 11/23/20 08:45 11/23/20 09:19 Sodium Chloride 0.9% IV 30 mls/hr .Q24H YULI Administration Pertinent History/Comorbid Conditions* Medical History (Updated 10/12/20 @ 10:25 by Paola Griffin) Chronic constipation Chronic diastolic HF (heart failure) Dyslipidemia GERD (gastroesophageal reflux disease) Hepatitis-C History of colon polyps HTN (hypertension) Major depressive disorder, recurrent, moderate Mixed incontinence urge and stress Obesity, morbid Osteoarthritis Psychiatric care Rheumatoid arthritis Sleep apnea Surgical History (Updated 08/09/20 @ 09:08 by Xenia Mai MD) H/O removal of cyst H/O tubal ligation History of appendectomy History of colonoscopy with polypectomy 2013 History of radiofrequency ablation procedure for cardiac arrhythmia Family History (Updated 03/16/19 @ 12:55 by Luli Story LPN) Mother Atrial fibrillation Brother Father Hypercholesterolemia Cancer Father prostate Mother breast cancer Stroke Social History Smoking and tobacco status: never smoked Second hand smoke exposure: No Alcohol intake: never Adopted: No Caregiver/support person: No Lives independently: Yes Household members: spouse Housing: Apartment Marital status: Marital status details: 37 years Number of children: 2 Number of grandchildren: 3 Highest education level completed: GED or Equivalent service: No Current occupational status: disabled Current occupational exposures/hazards: No Pets and animals: Yes Pets & animals: dog(s) History of recent travel: No Leisure activites: games, reading and other Leisure activities details: knit or jeannie Sexually active: Yes Current gender identity: Female Dede/Zoroastrianism: None Special dede needs: No Agree to transfusion: Yes Financial difficulty paying for basics: Somewhat Hard Pertinent Exam Findings alert, oriented x 3, clear to auscultation bilaterally, regular rate & rhythm and procedure specific exam findings (Abdominal examination nontender nondistended soft) Recommendations Surgery/Procedure today (Colonoscopy with possible possible polypectomy) Coding Level of Care Code Acute Dump Grounds Checker for Julio Harmon
[2020-11-23 10:36] VITALS: BP 114/71; PULSE 84; RESP 14; TEMP 36.1; O2SAT 96
[2020-11-23 10:41] VITALS: BP 112/74; PULSE 89; RESP 18; O2SAT 96
[2020-11-23 10:45] VITALS: BP 130/92; PULSE 91; RESP 18; TEMP 36.1; O2SAT 95
--- NOTE | 2020-11-23 11:25 | PC.NURSE ---
Patient waiting on to arrive to rock picker. Patient moved to specials room 1, lunch provided. Patient verbalized no complaints or concerns.
--- NOTE | 2020-11-23 15:25 | ANE.PACU2 ---
Inpatient post-anesthesia follow up: Airway intact: Yes Vital signs: Temperature 97.0 F Pulse Rate 91 Respiratory Rate 18 Blood Pressure 130/92 Pulse Oximetry 95 Oxygen Delivery Me thod Room Air Oxygen Flow Rate Fraction of Inspir ed Oxygen Hydration adequate: Yes Nausea and vomiting: No Pain level: 2 Mental status: Baseline
== END 2020-11-23 12:00 | disposition home or self-care (01) ==
PROVIDERS: PCP Family Medicine; Visit Provider Surgery
PROC: 0DJD8ZZ Inspection of Lower Intestinal Tract, Via Natural or Artificial Opening Endoscopic (ICD-10-PCS; CPT 45378; principal; 2020-11-23 09:45)
DX: D12.2 Benign neoplasm of ascending colon (principal); D12.8 Benign neoplasm of rectum; K57.30 Diverticulosis of large intestine without perforation or abscess without bleeding; Z86.010 Personal history of colon polyps; E66.01 Morbid (severe) obesity due to excess calories; Z68.42 Body mass index [BMI] 45.0-49.9, adult; I11.0 Hypertensive heart disease with heart failure; I50.32 Chronic diastolic (congestive) heart failure; E78.5 Hyperlipidemia, unspecified; K21.9 Gastro-esophageal reflux disease without esophagitis; Z86.19 Personal history of other infectious and parasitic diseases; F33.9 Major depressive disorder, recurrent, unspecified; M19.90 Unspecified osteoarthritis, unspecified site; M06.9 Rheumatoid arthritis, unspecified; G47.30 Sleep apnea, unspecified
CPT/HCPCS: 45380; 88305; 96360; 96361; J2704; J3490; J7030

== ENCOUNTER 2021-03-03 06:58 | Outpatient (CLI) | payer MEDICAID, SELFPAY ==
[2020-08-29 13:07] VITALS: BP 133/72; BMI 46.9
--- NOTE | 2021-03-03 07:09 | MM_ITS ---
WS: [id number] BILATERAL SCREENING DIGITAL MAMMOGRAM WITH CAD HISTORY: SCREENING COMPARISON: 10/06/2018 and 07/24/2017 Bilateral CC and MLO views submitted. Computer aided detection analyzed. Breast composition: There are scattered areas of fibroglandular density. No suspicious masses, microc alcifications or architectural distortion. Bilateral benign calcifications. Focal asymmetry upper out er quadrant of the RIGHT breast is stable over several prior examinations. MM/[id number] IMPRESSION: BI-RADS: 2-Benign FOLLOW UP: 1 Year Follow-up
== END 2021-03-03 06:59 | disposition home or self-care (01) ==
LOC: RADSHAW 07:05
PROVIDERS: PCP Family Medicine; Visit Provider Family Medicine
DX: Z12.31 Encounter for screening mammogram for malignant neoplasm of breast (principal)
CPT/HCPCS: 77067

== ENCOUNTER → 2021-04-25 09:36 | Outpatient (BNVA) | payer MEDICAID, SELFPAY ==
[2020-08-29 13:07] VITALS: BP 133/72; BMI 46.9
== END ==
PROVIDERS: PCP Family Medicine; Visit Provider Registered Nurse
DX: Z79.899 Other long term (current) drug therapy (principal)
CPT/HCPCS: 36415; 80061; 83036

== ENCOUNTER 2021-07-04 12:58 | Outpatient (CLI) | payer MEDICAID, SELFPAY ==
[2021-05-18 12:21] VITALS: BP 142/74; BMI 47.4
--- NOTE | 2021-07-04 13:45 | MR_ITS ---
WS: [id number] MRI LUMBAR SPINE NONCONTRAST HISTORY: Chronic bilateral leg pain severe, for one month. COMPARISON: None available. TECHNIQUE: Sagittal and axial multisequence imaging is submitted. Increase in thoracic kyphosis and lumbar lordosis. T12 Schmorl's nodes superior endplate. No retropul leisa. Disc spaces and vertebral body heights are well-preserved. Conus terminates normally at L1-2 disc level. L1-L2: Normal. L2-L3: Mild annular disc bulging with mild ligamentum flavum and facet arthritis. No stenosis. L3-L4: Mild facet arthritis. No stenosis. L4-L5: Mild annular disc bulging with mild ligamentum flavum and facet arthritis. No stenosis or nerv e root encroachment. L5-S1: Shallow LEFT paracentral disc protrusion extends into the proximal LEFT foramen. No nerve root encroachment. Mild bilateral ligamentum flavum and facet arthritis. Paravertebral soft tissues are normal. MR/MR lumbar spine wo con* [id number] IMPRESSION: 1. Moderate increase in the lumbar lordosis. 2. No high-grade central or foraminal stenosis. 3. Mild facet arthritis and ligamentum flavum disease from L2-3 to L5-S1. 4. Very shallow LEFT paracentral disc protrusion extending into the proximal L EFT foramen at L5-S1. No contact on the nerve root.
== END 2021-07-04 12:59 | disposition home or self-care (01) ==
PROVIDERS: PCP Family Medicine; Visit Provider Family Medicine
DX: M51.9 Unspecified thoracic, thoracolumbar and lumbosacral intervertebral disc disorder (principal); R93.7 Abnormal findings on diagnostic imaging of other parts of musculoskeletal system
CPT/HCPCS: 72148

== ENCOUNTER → 2021-07-11 10:16 | Outpatient (BNVA) | payer MEDICAID, SELFPAY ==
[2021-05-18 12:21] VITALS: BP 142/74; BMI 47.4
== END ==
PROVIDERS: PCP Family Medicine; Referring Provider Family Medicine; Visit Provider Anesthesiology Pain Medicine
DX: M47.816 Spondylosis without myelopathy or radiculopathy, lumbar region (principal); M51.36 Other intervertebral disc degeneration, lumbar region; M79.604 Pain in right leg; M79.605 Pain in left leg; Z87.891 Personal history of nicotine dependence
CPT/HCPCS: 99204

== ENCOUNTER 2021-08-28 06:00 | Outpatient (RCR) | payer MEDICAID, SELFPAY ==
[2021-08-28 10:12] VITALS: BP 142/74; BMI 47.4
== END 2021-09-17 23:59 | disposition home or self-care (01) ==
LOC: MPT 06:00
PROVIDERS: PCP Family Medicine; Referring Provider Anesthesiology Pain Medicine; Visit Provider Anesthesiology Pain Medicine
DX: M54.59 Other low back pain (principal); R26.81 Unsteadiness on feet
CPT/HCPCS: 97110; 97161; 97162; 97530

== ENCOUNTER 2021-09-18 06:00 | Outpatient (RCR) | payer MEDICAID, SELFPAY | END 2021-10-18 23:59 | disposition home or self-care (01) | LOC: MPT 06:00 | PROVIDERS: PCP Family Medicine; Referring Provider Anesthesiology Pain Medicine; Visit Provider Anesthesiology Pain Medicine | DX: M54.50 Low back pain, unspecified (principal); G89.29 Other chronic pain | CPT/HCPCS: 97110; 97530 ==

== ENCOUNTER 2021-10-19 06:00 | Outpatient (RCR) | payer MEDICAID, SELFPAY | END 2021-11-17 23:59 | disposition home or self-care (01) | LOC: MPT 06:00 | PROVIDERS: PCP Family Medicine; Visit Provider Anesthesiology Pain Medicine | DX: M54.50 Low back pain, unspecified (principal); G89.29 Other chronic pain; R26.81 Unsteadiness on feet | CPT/HCPCS: 97110; 97530 ==

== ENCOUNTER → 2021-11-19 09:28 | Outpatient (BNVA) | payer MEDICAID, SELFPAY ==
[2021-10-27 12:13] VITALS: BP 142/74; BMI 47.4
== END ==
PROVIDERS: PCP Family Medicine; Visit Provider Emergency Medicine
DX: R11.2 Nausea with vomiting, unspecified (principal)
CPT/HCPCS: 80053; 83690

== ENCOUNTER 2021-11-24 09:35 | Outpatient (CLI) | payer MEDICAID, SELFPAY ==
[2021-10-27 12:13] VITALS: BP 142/74; BMI 47.4
--- NOTE | 2021-11-24 09:30 | US_ITS ---
WS: [id number] Complete ABDOMINAL ULTRASOUND HISTORY: R11.2 - Nausea with vomiting, unspecified COMPARISON: None available. Liver: 16.2 cm in length. Liver is normal size and echogenicity with no mass or intrahepatic dilatati on. Portal Vein: Normal hepatopetal flow with monophasic waveform. Gallbladder: Normally distended with no gallstones, wall thickening or pericholecystic fluid. Gallbladder wall thickness: 0.3 cm. Pancreas: Normal size and echogenicity. CBD: 0.4 cm. Right kidney: 12.3 cm x 6.6 cm x 4.5 cm. No mass, cortical thickening or hydronephrosis. Left kidney: 11.9 cm x 6.3 cm x 4.2 cm. No mass, cortical thickening or hydronephrosis. Spleen: Normal size and echogenicity. Abdominal aorta and IVC are within normal limits. No ascites. US/US abdomen complete* [id number] IMPRESSION: Normal complete abdomen ultrasound.
== END 2021-11-24 09:36 | disposition home or self-care (01) ==
LOC: RAD 09:35
PROVIDERS: PCP Family Medicine; Visit Provider Emergency Medicine
DX: R11.2 Nausea with vomiting, unspecified (principal); R74.8 Abnormal levels of other serum enzymes
CPT/HCPCS: 76700

== ENCOUNTER 2021-11-27 12:02 | Outpatient (CLI) | payer MEDICAID, SELFPAY ==
[2021-10-27 12:13] VITALS: BP 142/74; BMI 47.4
--- NOTE | 2021-11-27 13:00 | US_ITS ---
WS: [id number] TRANSABDOMINAL PELVIC AND TRANSVAGINAL PELVIC ULTRASOUND HISTORY: N93.9 - Abnormal uterine and vaginal bleeding, unspecified COMPARISON: None available. Uterus: 8.0 cm x 4.0 cm x 3.0 cm. Normal size anteverted uterus. Transvaginal images are limited due to patient discomfort. No fibroid identified. Endometrium: Very limited evaluation of the endometrium. Endometrium is not well seen on transabdomin al imaging and patient had discomfort on transvaginal imaging. A small portion of the endometrium is identified measuring approximately 0.3 cm. Neither ovary is identified. No adnexal masses. No free fluid. US/US pelvic with transvaginal IMPRESSION: 1. Very limited evaluation of the pelvic structures due to body habitus. Patie nt was unable to tolerate transvaginal imaging. 2. Small portion of the endometrium is visualized and normal. Incomplete evalu ation of the endometrium. Cannot exclude endometrial abnormality. 3. Neither ovary identified.
== END 2021-11-27 12:03 | disposition home or self-care (01) ==
LOC: RAD 12:04
PROVIDERS: PCP Family Medicine; Visit Provider Emergency Medicine
DX: N93.9 Abnormal uterine and vaginal bleeding, unspecified (principal)
CPT/HCPCS: 76830; 76856

== ENCOUNTER → 2022-01-04 09:31 | Outpatient (BNVA) | payer MEDICAID, SELFPAY ==
[2021-12-26 15:37] VITALS: BP 142/74; BMI 47.4
== END ==
PROVIDERS: PCP Family Medicine; Visit Provider Family Medicine
DX: I48.0 Paroxysmal atrial fibrillation (principal); M62.830 Muscle spasm of back; M17.10 Unilateral primary osteoarthritis, unspecified knee; I50.32 Chronic diastolic (congestive) heart failure; J30.2 Other seasonal allergic rhinitis; R11.0 Nausea; R10.9 Unspecified abdominal pain; Z23 Encounter for immunization
CPT/HCPCS: 80053; 82977; 83690

== ENCOUNTER 2022-03-26 09:39 | Outpatient (CLI) | payer MEDICAID, SELFPAY ==
[2021-12-26 15:37] VITALS: BP 142/74; BMI 47.4
--- NOTE | 2022-03-26 09:52 | MM_ITS ---
WS: [id number] BILATERAL SCREENING DIGITAL TOMOSYNTHESIS MAMMOGRAM WITH CAD HISTORY: SCREENING COMPARISON: 03/03/2021, 10/06/2018 Bilateral CC and MLO views with tomosynthesis and synthetic mammography submitted. Computer aided det ection analyzed. Breast composition: There are scattered areas of fibroglandular density. No suspicious masses, microc alcifications or architectural distortion. Benign calcifications. MM/[place] [id number] IMPRESSION: BI-RADS: 2-Benign FOLLOW UP: 1 Year Follow-up
== END 2022-03-26 09:40 | disposition home or self-care (01) ==
PROVIDERS: PCP Family Medicine; Visit Provider Family Medicine
DX: Z12.31 Encounter for screening mammogram for malignant neoplasm of breast (principal)
CPT/HCPCS: 77063; 77067

== ENCOUNTER → 2022-04-16 14:00 | Outpatient (BNVA) | payer OTHER, SELFPAY ==
[2021-12-26 15:37] VITALS: BP 142/74; BMI 47.4
== END ==
PROVIDERS: PCP Family Medicine; Visit Provider Registered Nurse
DX: F33.1 Major depressive disorder, recurrent, moderate (principal)
CPT/HCPCS: 80061; 83036

== ENCOUNTER → 2022-07-03 14:12 | Outpatient (BNVA) | payer MEDICAID, OTHER, SELFPAY ==
[2022-05-01 16:43] VITALS: BP 130/45; BMI 50.0
== END ==
PROVIDERS: PCP Family Medicine; Visit Provider Family Medicine
DX: M17.12 Unilateral primary osteoarthritis, left knee (principal)
CPT/HCPCS: 73562

== ENCOUNTER 2022-07-24 08:08 | Day surgery (SDC) | payer MEDICAID, SELFPAY ==
[2022-05-01 16:43] VITALS: BP 130/45; BMI 50.0
[2022-07-23 16:09] VITALS: BMI 51.1
[2022-07-24] VITALS (12 sets, daily range): BP systolic 116–162; BP diastolic 66–92; PULSE 61–79; RESP 11–18; TEMP 36.1–36.6; O2SAT 93–99
[2022-07-24] MEDS: sodium chloride 0.9% 1,000 ML 30 ML IV (08:37)
--- NOTE | 2022-07-24 08:52 | P.ANESASSM_ITS ---
Pre-Anesthetic Assessment Height/Weight: Height 1.68 m Weight 143.789 kg Temp Pulse Resp BP Pulse Ox O2 Del Method 97 F L 67 17 162/92 97 Room Air 07/24/22 08:24 07/24/22 08:24 07/24/22 08:24 07/24/22 08:24 07/24/22 08:24 07/24/22 08:24 Preop Diagnosis: pmb Operation Date: 07/24/22 09:55 Proposed Procedures p [Hysteroscopy, dilation and curettage with Myosure [id number]], N95.0(Not Applicable) - Kavya Nina MD Familial anesthetic complications: None Was Beta Cristin taken within 24 hours: N/A Was Clonidine taken within 24 hours: N/A Last intake: Intake Last Liquid Date 07/23/22 Last Liquid Time 18:00 Last Solid Date 07/23/22 Last Solid Time 18:00 Social No alcohol and No tobacco Exam alert, oriented x 3, clear to auscultation bilaterally and regular rate & rhythm Airway Mallampati: Class III Dentition: other (no teeth) Pulmonary Sleep Apnea CV/HEM Atrial Fibrillation and Hypertension type II [place] Hepatic Hepatitis (C) [facility] Rheumatoid Arthritis Anesthetic Plan ASA status: 3 Anesthesia: General Risk of > 500 ml blood loss (7ml/kg in children): No Medications/Allergies Home Medications Medication Instructions Recorded Confirmed Last Taken Type Lactobacillus acidophilus 1.5 mg 100 mmu cells PO DAILY@0800 03/11/19 07/23/22 07/23/22 History (250 million cell) capsule (Probiotic Acidophilus) calcium citrate 315 mg-vitamin D3 1 tab PO DAILY@0800 03/11/19 07/23/22 07/23/22 History 5 mcg (200 unit) tablet flecainide 50 mg tablet 50 mg PO Q12H 08/09/20 07/23/22 07/24/22 History magnesium 30 mg tablet 30 mg PO DAILY 11/18/20 07/23/22 07/23/22 History miscellaneous medical supply 1 ea miscellaneous ONCE #1 ea 07/25/21 07/23/22 Unknown Rx psyllium husk 0.4 gram capsule 0.4 g PO DAILY 09/28/21 07/23/22 07/23/22 History (Fiber (psyllium husk)) atorvastatin 40 mg tablet 40 mg PO DAILY@2100 #90 tabs 10/18/21 07/23/22 07/23/22 Rx nitroglycerin 0.4 mg sublingual See Rx Instructions .Route 11/11/21 07/23/22 Unknown Rx tablet .COMPLEX #25 tabs ondansetron 4 mg disintegrating 4 mg PO Q6H PRN nausea and 01/04/22 07/24/22 07/23/22 Rx tablet vomiting #24 tabs potassium chloride 20 mEq 20 meq PO DAILY 90 days #90 tabs 01/04/22 07/23/22 07/23/22 Rx tablet,extended release(part/cryst) tizanidine 4 mg tablet 4 mg PO Q8H PRN muscle spasticity 01/29/22 07/24/22 07/23/22 Rx 30 days #90 tabs sertraline 100 mg tablet (Zoloft) 150 mg PO DAILY@0800 #45 tabs 06/14/22 07/23/22 07/23/22 Rx diclofenac sodium 1 % topical gel 4 g topical QID PRN Pain 07/23/22 07/23/22 Unknown History famotidine 40 mg tablet 40 mg PO DAILY 07/23/22 07/23/22 07/23/22 History furosemide 20 mg tablet 20 mg PO DAILY 07/23/22 07/23/22 07/23/22 History loratadine 10 mg tablet (Allergy 10 mg PO DAILY 07/23/22 07/23/22 07/23/22 His tory Relief (loratadine)) Allergies Allergy/AdvReac Type Severity Reaction Status Date / Time NSAIDS (Non-Steroidal AdvReac Intermediate ADR-Nausea Verified 07/24/22 08:19 Anti-Inflamma codeine AdvReac Mild headache, Verified 07/24/22 08:19 vomiting Current Medications Generic Name Dose Route Start Last Admin Trade Name Freq PRN Reason Stop Dose Admin Sodium Chloride 1,000 mls @ 30 mls/hr 07/24/22 08:30 07/24/22 08:37 Sodium Chloride 0.9% IV 07/25/22 08:29 30 mls/hr .Q24H YULI Administration PFSH Anesthesia Medical History Chronic constipation Chronic diastolic HF (heart failure) Colon polyps Dyslipidemia GERD (gastroesophageal reflux disease) Hepatitis-C History of colon polyps HTN (hypertension) Major depressive disorder, recurrent, moderate Mixed incontinence urge and stress Obesity, morbid Osteoarthritis Psychiatric care Rheumatoid arthritis Sleep apnea Surgical History H/O removal of cyst H/O tubal ligation History of appendectomy History of colonoscopy with polypectomy 2013 History of radiofrequency ablation procedure for cardiac arrhythmia Family History Mother Breast cancer Diabetes Hypertension Father Heart disease Hypertension Other Hypercholesterolemia Stroke Denies family history of Colon cancer Ovarian cancer Uterine cancer Thyroid disease Female Reproductive History Para: 2 Spontaneous abortions: No Data Anesthesia Cardiac Studies: No Data to Display
[2022-07-24 09:04] LABS: Basophils # 0.1 10^3/uL (0.0-0.1); Basophils % 0.7 %; Eosinophils # 0.2 10^3/uL (0.0-0.8); Eosinophils % 1.7 %; Hematocrit 39.4 % (37.0-47.0); Hemoglobin 12.5 g/dL (11.5-15.3); Lymphocytes # 1.6 10^3/uL (0.8-4.8); Lymphocytes % 16.7 %; Mean Corpuscular HGB Conc 31.7 g/dL (30.0-36.0); Mean Corpuscular Hemoglobin 29.3 pg (28.0-34.0); Mean Corpuscular Volume 92.3 fl (81-99); Mean Platelet Volume 10.3 fL (7.4-10.4); Monocytes # 0.6 10^3/uL (0.2-0.9); Monocytes % 6.2 %; Neutrophils # 7.13 10^3/uL (1.8-7.7); Neutrophils % 74.4 %; Nucleated Red Blood Cells % 0 %; Platelet Count 185 10^3/cmm (130-400); Red Blood Count 4.27 10^6/uL (4.1-5.3); Red Cell Distribution Width 13.8 % (12.1-15.1); White Blood Count 9.6 10^3/uL (4.0-10.0)
[2022-07-24 09:35] LABS: Blood Urea Nitrogen 16 mg/dL (8-23); Calcium 8.7 mg/dL (8.5-10.5); Carbon Dioxide 23 mmol/L (22-29); Chloride 105 mmol/L (98-107); Glomerular Filtration Rate 72.2 mL/min (90-130); Glucose 92 mg/dL (65-115); Osmolality Calculated 287 mOsm/kg (285-295); Sodium 138 mmol/L (136-145)
--- NOTE | 2022-07-24 09:57 | W.PM.OPSUD ---
Surgery/Procedure H&P Update DATE OF PROCEDURE: July 24, 2022 DATE H&P PERFORMED: 07/23/22 H&P UPDATE INFORMATION: I have reviewed H&P completed within last 30 days, I have examined patient prior to procedure and No changes to prior documentation PREOP DIAGNOSIS: pmb PLANNED PROCEDURE: Operation Date: 07/24/22 09:55 Proposed Procedures p [Hysteroscopy, dilation and curettage with Myosure [id number]], N95.0(Not Applicable) - Kavya Nina MD Related Problem List Diagnoses (1) PMB (postmenopausal bleeding):
[2022-07-24] MEDS: ceFAZolin 3,000 MG in sodium chloride 0.9% (100 ml) 100 ML 200 MG IV (10:05)
--- NOTE | 2022-07-24 10:54 | PM.OP ---
Operative Report Date of procedure: July 24, 2022 Pre-op diagnosis: Preop Diagnosis pmb Post-op diagnosis: same Post-op findings: with excessively thickened endometrium Procedure done: hysteroscopy, dilation and curettage with myosure Specimens removed/disposition: endometrial curettings to pathology Surgeon: Kavya Nina Anesthesia: General Estimated blood loss (mL): 0 IV fluids (mL): 300 Complications: none Condition: stable Disposition: PACU Procedure: The patient was taken to the operating room where monitored anesthesia was administered and to be adequate. She was prepped and draped in the normal sterile fashion in the dorsal lithotomy position in [facility]. A weighted speculum was placed into the vagina and the anterior lip of the cervix grasped with a single-tooth tenaculum. The uterus was sounded to 10 cm. The cervix was dilated to 16 Camb[place]ian. The hysteroscope was advanced into the endometrial cavity. There was excessive tissue and fibroids visualized. The MyoSure device was activated and the tissue was removed. Pictures were taken pre and post procedure. All instruments were removed. The patient tolerated the procedure well. Sponge lap and needle counts were correct x3. She was taken to the recovery room in stable condition.
--- NOTE | 2022-07-24 11:03 | P.DS_ITS ---
Discharge Providers Date of Admission: 07/24/22 Date of Discharge: July 24, 2022 Attending Provider at Admission: Dr. Nina Attending Provider at Discharge: Kavya Nina MD Primary Care Provider: Xenia Mai MD Diagnoses at Discharge Discharge Diagnosis (1) PMB (postmenopausal bleeding): Status: Acute Hospital Course Hospital Course The patient was admitted for surgery. she did well postoperatively and was ready for discharge Discharge Data Studies Completed and Pending Pending at discharge Category Date Time Status BMP [Basic Metabolic Panel] Routine Lab 07/24/22 08:51 Ordered CBC Auto Diff [Complete Blood Count w/Auto] Routine Lab 07/24/22 08:51 Ordered Pathology: Surgical [PTH] Routine Pth 07/24/22 10:54 Ordered Laboratory Results WBC 9.6 10^3/uL (4.0-10.0) 07/24/22 08:45 RBC 4.27 10^6/uL (4.1-5.3) 07/24/22 08:45 Hgb 12.5 g/dL (11.5-15.3) 07/24/22 08:45 Hct 39.4 % (37.0-47.0) 07/24/22 08:45 MCV 92.3 fl (81-99) 07/24/22 08:45 MCH 29.3 pg (28.0-34.0) 07/24/22 08:45 MCHC 31.7 g/dL (30.0-36.0) 07/24/22 08:45 RDW 13.8 % (12.1-15.1) 07/24/22 08:45 Plt Count 185 10^3/cmm (130-400) 07/24/22 08:45 MPV 10.3 fL (7.4-10.4) 07/24/22 08:45 Neut % (Auto) 74.4 % 07/24/22 08:45 Lymph % (Auto) 16.7 % 07/24/22 08:45 [place] % (Auto) 6.2 % 07/24/22 08:45 Eos % (Auto) 1.7 % 07/24/22 08:45 Baso % (Auto) 0.7 % 07/24/22 08:45 Neut # (Auto) 7.13 10^3/uL (1.8-7.7) 07/24/22 08:45 Lymph # (Auto) 1.6 10^3/uL (0.8-4.8) 07/24/22 08:45 [place]geman # (Auto) 0.6 10^3/uL (0.2-0.9) 07/24/22 08:45 Eos # (Auto) 0.2 10^3/uL (0.0-0.8) 07/24/22 08:45 Baso # (Auto) 0.1 10^3/uL (0.0-0.1) 07/24/22 08:45 Nucleated RBC % (auto) 0 % 07/24/22 08:45 Nucleated RBCs # 0.0 /100WBC 07/24/22 08:45 Sodium 138 mmol/L (136-145) 07/24/22 08:45 Potassium 4.0 mmol/L (3.5-5.1) 07/24/22 08:45 Chloride 105 mmol/L (98-107) 07/24/22 08:45 Carbon Dioxide 23 mmol/L (22-29) 07/24/22 08:45 Anion Gap 14.0 (5-19) 07/24/22 08:45 BUN 16 mg/dL (8-23) 07/24/22 08:45 Creatinine 0.8 mg/dL (0.5-0.9) 07/24/22 08:45 GFR Calculation 72.2 mL/min (90-130) L 07/24/22 08:45 Glucose 92 mg/dL (65-115) 07/24/22 08:45 Calculated Osmolality 287 mOsm/kg (285-295) 07/24/22 08:45 Calcium 8.7 mg/dL (8.5-10.5) 07/24/22 08:45 Vitals Last Vital Signs Temp 97 F L 07/24/22 08:24 Pulse 67 07/24/22 08:24 Resp 17 07/24/22 08:24 BP 162/92 07/24/22 08:24 Pulse Ox 97 07/24/22 08:24 O2 Del Method Room Air 07/24/22 08:24 Discharge Plan Discharge Patient Disposition: Home Condition: Stable Prescriptions: Continued Probiotic Acidophilus 1.5 mg (250 million cell) capsule 100 mmu cells PO DAILY@0800 calcium citrate-vitamin D3 315-200 mg-unit tablet 1 tab PO DAILY@0800 flecainide 50 mg tablet 50 mg PO Q12H psyllium husk [Fiber (psyllium husk)] 0.4 gram capsule 0.4 g PO DAILY potassium chloride 20 mEq tablet,ER particles/crystals 20 meq PO DAILY 90 Days Qty: 90 3RF ondansetron 4 mg tablet,disintegrating 4 mg PO Q6H PRN (Reason: nausea and vomiting) Qty: 24 0RF Rx Instructions: 340b please miscellaneous medical supply Misc 1 ea miscellaneous ONCE Qty: 1 0RF Rx Instructions: Quad Cane atorvastatin 40 mg tablet 40 mg PO DAILY@2100 Qty: 90 3RF nitroglycerin 0.4 mg tablet, sublingual See Rx Instructions .ROUTE .COMPLEX Qty: 25 0RF Dose Instruction: 1 TABLET UNDER TONGUE AT ONSET OF CHEST PAIN-MAY REPEAT EVERY 5 MIN FOR 3 DOSES IF STILL HAVING CHEST PAIN GO TO ER Rx Instructions: 1 TABLET UNDER TONGUE AT ONSET OF CHEST PAIN-MAY REPEAT EVERY 5 MIN FOR 3 DOSES IF STILL HAVING CHEST PAIN GO TO ER tizanidine 4 mg tablet 4 mg PO Q8H PRN (Reason: muscle spasticity) 30 Days Qty: 90 5RF Zoloft 100 mg tablet 150 mg PO DAILY@0800 Qty: 45 3RF magnesium 30 mg Tablet 30 mg PO DAILY famotidine 40 mg tablet 40 mg PO DAILY furosemide 20 mg tablet 20 mg PO DAILY loratadine [Allergy Relief (loratadine)] 10 mg tablet 10 mg PO DAILY diclofenac sodium 1 % gel 4 g topical QID PRN (Reason: Pain) Rx Instructions: apply to knees Discharge Orders: Discharge Order (Routine); Ordered 07/24/22 Ordered By: Kavya Nina Discharge Attestations Time Spent in Discharge Care*: less than 30 min Quality Metrics Clinical Quality Measures [ No reported AMI, CVA or VTE this stay] Coding Level of Care Code Acute Code for Chg Fwd Diagnoses PMB (postmenopausal bleeding) N95.0
--- NOTE | 2022-07-24 15:53 | ANE.PACU2 ---
Inpatient post-anesthesia follow up: Airway intact: Yes Vital signs: Temperature 97.8 F Pulse Rate 61 Respiratory Rate 18 Blood Pressure 130/71 Pulse Oximetry 97 Oxygen Delivery Me thod Room Air Oxygen Flow Rate 5 Fraction of Inspir ed Oxygen Hydration adequate: Yes Nausea and vomiting: Yes Pain level: 1 Mental status: Baseline
== END 2022-07-24 12:26 | disposition home or self-care (01) ==
PROVIDERS: Anesthesiology; PCP Family Medicine; Visit Provider Obstetrics & Gynecology
PROC: 0UDB8ZZ Extraction of Endometrium, Via Natural or Artificial Opening Endoscopic (ICD-10-PCS; CPT 58558; principal; 2022-07-24 09:45)
DX: N95.0 Postmenopausal bleeding (principal); I48.91 Unspecified atrial fibrillation; I10 Essential (primary) hypertension; M06.9 Rheumatoid arthritis, unspecified; B19.20 Unspecified viral hepatitis C without hepatic coma
CPT/HCPCS: 58558; 36415; 80048; 85025; 88305; J0131; J0330; J0690; J1100; J2405; J2704; J3010; J3490; J7030

== ENCOUNTER → 2022-11-10 15:13 | Outpatient (BNVA) | payer MEDICAID, SELFPAY ==
[2022-05-01 16:43] VITALS: BP 130/45; BMI 50.0
== END ==
PROVIDERS: PCP Family Medicine; Visit Provider Nurse Practitioner Family
DX: N39.0 Urinary tract infection, site not specified (principal)
CPT/HCPCS: 81000

== ENCOUNTER → 2023-01-11 09:42 | Outpatient (BNVA) | payer MEDICAID, SELFPAY ==
[2022-05-01 16:43] VITALS: BP 130/45; BMI 50.0
== END ==
PROVIDERS: PCP Family Medicine; Visit Provider Family Medicine
DX: I11.0 Hypertensive heart disease with heart failure (principal); I50.32 Chronic diastolic (congestive) heart failure
CPT/HCPCS: 80048; 80061

== ENCOUNTER → 2023-04-08 10:58 | Outpatient (BNVA) | payer OTHER, SELFPAY ==
[2022-05-01 16:43] VITALS: BP 130/45; BMI 50.0
== END ==
PROVIDERS: Visit Provider Psychiatry & Neurology Psychiatry
DX: F41.1 Generalized anxiety disorder (principal)
CPT/HCPCS: 80061; 83036

== ENCOUNTER 2023-04-09 06:00 | Outpatient (RCR) | payer MEDICARE, MEDICAID, SELFPAY ==
[2022-05-01 16:43] VITALS: BP 130/45; BMI 50.0
== END 2023-04-18 23:59 | disposition home or self-care (01) ==
LOC: MPT 06:00
PROVIDERS: Visit Provider Podiatrist Foot & Ankle Surgery
DX: R26.81 Unsteadiness on feet (principal)
CPT/HCPCS: 97110; 97112; 97162

== ENCOUNTER 2023-04-19 06:00 | Outpatient (RCR) | payer MEDICARE, MEDICAID, SELFPAY ==
[2023-04-12 15:36] VITALS: BP 157/83; BMI 52.2
== END 2023-05-19 23:59 | disposition home or self-care (01) ==
LOC: MPT 06:00
PROVIDERS: Visit Provider Podiatrist Foot & Ankle Surgery
DX: R26.81 Unsteadiness on feet (principal)
CPT/HCPCS: 97110; 97112

== ENCOUNTER 2023-05-20 06:00 | Outpatient (RCR) | payer MEDICARE, MEDICAID, SELFPAY ==
[2023-04-12 15:36] VITALS: BP 157/83; BMI 52.2
== END 2023-06-13 23:59 | disposition home or self-care (01) ==
LOC: MPT 06:00
PROVIDERS: Visit Provider Podiatrist Foot & Ankle Surgery
DX: R26.9 Unspecified abnormalities of gait and mobility (principal)
CPT/HCPCS: 97110; 97112

== ENCOUNTER → 2023-07-11 09:19 | Outpatient (BNVA) | payer MEDICARE, SELFPAY ==
[2023-05-29 09:41] VITALS: BP 157/83; BMI 52.2
== END ==
PROVIDERS: Visit Provider Family Medicine
DX: I48.0 Paroxysmal atrial fibrillation (principal); E78.5 Hyperlipidemia, unspecified; K21.9 Gastro-esophageal reflux disease without esophagitis; I50.32 Chronic diastolic (congestive) heart failure; F33.1 Major depressive disorder, recurrent, moderate; M51.36 Other intervertebral disc degeneration, lumbar region; J30.2 Other seasonal allergic rhinitis; I10 Essential (primary) hypertension; M17.0 Bilateral primary osteoarthritis of knee; N39.46 Mixed incontinence; Z12.31 Encounter for screening mammogram for malignant neoplasm of breast; E66.01 Morbid (severe) obesity due to excess calories; Z68.43 Body mass index [BMI] 50.0-59.9, adult; G47.33 Obstructive sleep apnea (adult) (pediatric)
CPT/HCPCS: 80048

== ENCOUNTER 2023-07-25 09:28 | Outpatient (CLI) | payer MEDICARE, MEDICAID, SELFPAY ==
[2023-05-29 09:41] VITALS: BP 157/83; BMI 52.2
--- NOTE | 2023-07-25 09:30 | MM_ITS ---
WS: [id number] BILATERAL SCREENING DIGITAL TOMOSYNTHESIS MAMMOGRAM WITH CAD HISTORY: Z12.39 - Encounter for other screening for malignant neop... COMPARISON: 03/26/2022, 03/03/2021, 12/18/2019 Bilateral CC and MLO views with tomosynthesis and synthetic mammography submitted. Computer aided det ection analyzed. Breast composition: There are scattered areas of fibroglandular density. No suspicious masses, microc alcifications or architectural distortion. Benign calcifications in each breast. MM/[place] [id number] IMPRESSION: BI-RADS: 2-Benign FOLLOW UP: 1 Year Follow-up
== END 2023-07-25 09:29 | disposition home or self-care (01) ==
LOC: MOBLMAM 09:31
PROVIDERS: PCP Family Medicine; Visit Provider Family Medicine
DX: Z12.31 Encounter for screening mammogram for malignant neoplasm of breast (principal); R92.323 Mammographic fibroglandular density, bilateral breasts; R92.1 Mammographic calcification found on diagnostic imaging of breast
CPT/HCPCS: 77063; 77067

== ENCOUNTER → 2023-12-08 11:19 | Outpatient (BNVA) | payer MEDICARE, MEDICAID, SELFPAY ==
[2023-05-29 09:41] VITALS: BP 157/83; BMI 52.2
== END ==
PROVIDERS: PCP Family Medicine; Visit Provider Family Medicine
DX: R05.9 Cough, unspecified (principal)
CPT/HCPCS: 87071; 87400; 87426; 87880

== ENCOUNTER → 2024-01-14 10:47 | Outpatient (BNVA) | payer MEDICAID, SELFPAY ==
[2023-05-29 09:41] VITALS: BP 157/83; BMI 52.2
== END ==
PROVIDERS: PCP Family Medicine; Visit Provider Family Medicine
DX: I10 Essential (primary) hypertension (principal)
CPT/HCPCS: 80053

== ENCOUNTER → 2024-06-17 13:11 | Outpatient (BNVA) | payer MEDICARE, MEDICAID, SELFPAY ==
[2023-05-29 09:41] VITALS: BP 157/83; BMI 52.2
== END ==
PROVIDERS: PCP Family Medicine; Visit Provider Student in an Organized Health Care Education/Training Program
DX: M25.561 Pain in right knee (principal); M25.562 Pain in left knee; M17.0 Bilateral primary osteoarthritis of knee
CPT/HCPCS: 73560; 73565

== ENCOUNTER 2024-06-17 15:52 | Outpatient (CLI) | payer MEDICARE, MEDICAID, SELFPAY ==
[2023-05-29 09:41] VITALS: BP 157/83; BMI 52.2
== END 2024-06-17 15:53 | disposition home or self-care (01) ==
LOC: SPT 15:53
PROVIDERS: PCP Family Medicine; Visit Provider Student in an Organized Health Care Education/Training Program
DX: Z46.89 Encounter for fitting and adjustment of other specified devices (principal); M17.12 Unilateral primary osteoarthritis, left knee
CPT/HCPCS: 97760; L1851

== ENCOUNTER → 2024-07-01 10:09 | Outpatient (BNVA) | payer MEDICARE, MEDICAID, SELFPAY ==
[2023-05-29 09:41] VITALS: BP 157/83; BMI 52.2
== END ==
PROVIDERS: PCP Family Medicine; Visit Provider Physician Assistant
DX: M17.0 Bilateral primary osteoarthritis of knee (principal); Z71.89 Other specified counseling
CPT/HCPCS: 20610; 99213; J7318

== ENCOUNTER → 2024-08-17 16:53 | Outpatient (BNVA) | payer MEDICARE, MEDICAID, SELFPAY ==
[2023-05-29 09:41] VITALS: BP 157/83; BMI 52.2
== END ==
PROVIDERS: PCP Family Medicine; Visit Provider Family Medicine
DX: I10 Essential (primary) hypertension (principal); I50.32 Chronic diastolic (congestive) heart failure
CPT/HCPCS: 80053; 80061; 85025

== ENCOUNTER 2024-08-20 09:41 | Outpatient (CLI) | payer MEDICARE, MEDICAID, SELFPAY ==
[2023-05-29 09:41] VITALS: BP 157/83; BMI 52.2
--- NOTE | 2024-08-20 09:40 | MM_ITS ---
WS: [id number] VIEWS: MLO and CC views both breasts. 3D digital tomosynthesis is also included in this exam. Comparison made with prior exam of 11/17/2012, 12/24/2013, 01/25/2015, 05/17/2016, 07/24/2017, 10/06/2018, 12/18/2019, 03/03/2021, 03/26/2022, 07/25/2023.. Findings: The breasts are almost entirely fatty. No sign of suspicious mass, tumor calcification or architectural distortion. MM/MM scr BI tomosynthesis [id number] Impression: BI-RADS: 1 - Negative. 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
== END 2024-08-20 09:42 | disposition home or self-care (01) ==
PROVIDERS: PCP Family Medicine; Visit Provider Family Medicine
DX: Z12.31 Encounter for screening mammogram for malignant neoplasm of breast (principal)
CPT/HCPCS: 77063; 77067

== ENCOUNTER → 2024-10-07 10:00 | Outpatient (BNVA) | payer MEDICARE, MEDICAID, SELFPAY ==
[2023-05-29 09:41] VITALS: BP 157/83; BMI 52.2
== END ==
PROVIDERS: PCP Family Medicine; Visit Provider Physician Assistant
DX: M17.12 Unilateral primary osteoarthritis, left knee (principal); Z71.89 Other specified counseling
CPT/HCPCS: 20610; 99213; J3301; J9999

== ENCOUNTER → 2024-10-27 16:16 | Outpatient (BNVA) | payer MEDICARE, MEDICAID, SELFPAY ==
[2023-05-29 09:41] VITALS: BP 157/83; BMI 52.2
== END ==
PROVIDERS: PCP Family Medicine; Visit Provider Nurse Practitioner
DX: R30.0 Dysuria (principal)
CPT/HCPCS: 81000

== ENCOUNTER → 2024-11-20 15:14 | Outpatient (BNVA) | payer MEDICARE, MEDICAID, SELFPAY ==
[2023-05-29 09:41] VITALS: BP 157/83; BMI 52.2
== END ==
PROVIDERS: PCP Family Medicine; Visit Provider Nurse Practitioner
DX: N39.0 Urinary tract infection, site not specified (principal)
CPT/HCPCS: 81000; 87086

== ENCOUNTER → 2024-12-04 10:04 | Outpatient (BNVA) | payer MEDICARE, MEDICAID, SELFPAY ==
[2023-05-29 09:41] VITALS: BP 157/83; BMI 52.2
== END ==
PROVIDERS: PCP Family Medicine; Referring Provider Nurse Practitioner; Visit Provider Nurse Practitioner
DX: N39.0 Urinary tract infection, site not specified (principal)
CPT/HCPCS: 81000; 87086

== ENCOUNTER → 2025-01-13 09:42 | Outpatient (BNVA) | payer MEDICARE, MEDICAID, SELFPAY ==
[2023-05-29 09:41] VITALS: BP 157/83; BMI 52.2
== END ==
PROVIDERS: PCP Family Medicine; Visit Provider Physician Assistant
DX: M17.0 Bilateral primary osteoarthritis of knee (principal); Z71.89 Other specified counseling
CPT/HCPCS: 20610; 99213; J3301; J9999